=== PATIENT | female | born 1950 | race Caucasian/White ===

== ENCOUNTER → 2016-12-21 | Outpatient (CLI) | payer MEDICARE, MEDICAID ==
[~2016-12-21] MED LIST: ADVAIR DIS14 PUFF/IN INH; BACTROBAN NASAL1 GM NAS; CELEXA40 MG PO; CLARITIN10 MG PO; CRANBERRY-VITAMIN C PO; DULCOLAX10 MG RECTAL; FLOVENT HFA 11012 GM INH; FOLIC ACID1 MG PO; HIPREX1 GM PO; IMODIUM2 MG PO; LAMICTAL200 MG PO; LASIX20 MG PO; LOTRIMIN AF28.35 GM TOP; MILK OF MAGNESI30 ML PO; MIRALAX17 GM PO; NORCO 325-5 MG1 TAB PO; OMNICEF300 MG PO; PRILOSEC20 MG PO; PRINIVIL20 MG PO; PROAIR HFA8.5 GM INH; SM COMPLETE SE1 EACH PO; SYNTHROID25 MCG PO; ULTRAM50 MG PO; VITAMIN C500 M1 PO; ZYPREXA10 MG PO
== END | disposition short-term general hospital (02) ==
LOC: CLUROL 11-09 10:17
DX: N39.0 Urinary tract infection, site not specified (principal); R32 Unspecified urinary incontinence